=== PATIENT | female | born 1970 ===

== ENCOUNTER → 2018-09-07 21:53 | Outpatient (REF) | payer OTHER, SELFPAY ==
[2018-09-07 22:00] LABS: Bacteria Urine None Seen; RBC Urine None Seen (0-5/HPF); WBC Urine None Seen (0-5/HPF)
[2018-09-07 22:13] LABS: HEMOLYSIS < 15 (0-50)
[2018-09-07 22:14] LABS: Add Manual Diff / Slide Review NO; Basophils Percent Auto 0.6 % (0-2); Eosinophils Percent Auto 1.8 % (2-4); Hematocrit 39.8 % (36-46); Hemoglobin 13.5 g/dL (12.0-16.0); Lymphocytes Percent Auto 27.3 % (25-40); Mean Corpuscular HGB Conc 33.8 % (30-36); Mean Corpuscular Hemoglobin 30.6 PG (26-34); Mean Corpuscular Volume 90.6 fL (80-100); Monocytes Percent Auto 5.8 % (3-14); Neutrophils Absolute Auto 4200 /uL (3000-5900); Neutrophils Percent Auto 64.5 % (50-75); Platelet Count 297 X10^3/uL (150-400); Red Cell Distribution Width 12.6 % (11.6-14.8); White Blood Cell Count 6.6 X10^3/uL (4.5-11.0)
[2018-09-07 22:16] LABS: Appearance Urine UA CLEAR; Bilirubin Urine UA NEGATIVE (NEGATIVE); Color Urine UA YELLOW; Glucose Urine UA NEGATIVE (Normal); Ketones Urine UA NEGATIVE (NEGATIVE); Leukocyte Esterase Urine UA NEGATIVE (NEGATIVE); Nitrite Urine UA NEGATIVE (Negative); Occult Blood Urine UA NEGATIVE (Negative); Protein Urine UA NEGATIVE (Negative); Specific Gravity Urine UA 1.015 (1.000-1.035); Urobilinogen Urine UA 0.2 E.U./dL (0.2)
[2018-09-07 22:19] LABS: Alanine Aminotransferase 33 IU/L (9-52); Albumin 4.1 g/dL (3.5-5.0); Albumin Globulin Ratio 1.6 (1.0-2.8); Alkaline Phosphatase 49 U/L (38-126); Aspartate Aminotransferase 34 IU/L (14-36); BUN Creatinine Ratio 18.8 (6-22); Bilirubin Total 0.4 mg/dL (0.2-1.3); Blood Urea Nitrogen 15 mg/dL (7-17); Calcium 9.1 mg/dL (8.4-10.2); Carbon Dioxide 28 mmol/L (22-32); Chloride 103 mmol/L (98-107); Cholesterol 155 mg/dL (140-199); Estimated Glomerular Filt Rate > 60.0 mL/min (>60); Globulin 2.6 g/dL (1.7-4.1); Glucose 84 mg/dL (70-100); HDL Cholesterol 80 mg/dL (40-60); LDL Cholesterol Calculated 64 mg/dL (<100); Potassium 4.9 mmol/L (3.4-5.1); Sodium 141 mmol/L (137-145); Total Protein 6.7 g/dL (6.3-8.2); Triglycerides 53 mg/dL (35-150); Uric Acid 4.5 mg/dL (2.5-6.2)
[2018-09-07 22:38] LABS: Culture Indicated Urine Cult Not Indicated; Squamous Epithelial Cell Urine 0-1 /HPF; Urine Comments Microscopic Normal
[2018-09-07 22:50] LABS: Thyroid Stimulating Hormone 0.81 uIU/mL (0.47-4.68)
[2018-09-07 22:52] LABS: Erythrocyte Sedimentation Rate 2 MM/HR (0-20)
[2018-09-07 22:54] LABS: Ferritin 44.2 ng/mL (6.27-137)
[2018-09-07 23:24] LABS: Rheumatoid Factor 19.8 IU/mL (<12.0)
[2018-09-07 23:34] LABS: C-Reactive Protein Quant < 0.5 mg/dL (<1.0)
[2018-09-07 23:39] LABS: Free T3, Triiodothyronine Free 4.26 pg/mL (2.77-5.27); Free T4, Direct Thyroxine 1.19 ng/dL (0.78-2.19)
[2018-09-08 01:30] LABS: Carcinoembryonic Antigen 1.5 ng/mL (0.1-3.0); Cortisol AM (Before 10AM) 9.65 ug/dL (4.46-22.7)
[2018-09-10 16:00] LABS: ANA Screen, IFA Negative (Negative)
[2018-09-11 14:01] LABS: Dehydroepiandrosterone Sulfate 109 mcg/dL (19-231)
[2018-09-12 08:40] LABS: Anti Thyroglobulin Antibody < 1 IU/mL (< 2); Thyroid Peroxidase Antibodies 1 IU/mL (< 9)
== END ==
LOC: LAB 21:53
PROVIDERS: Visit Provider Acupuncturist
DX: M05.9 Rheumatoid arthritis with rheumatoid factor, unspecified (principal); R53.83 Other fatigue
CPT/HCPCS: 36415; 80053; 80061; 81001; 82378; 82533; 82627; 82728; 84439; 84443; 84481; 84550; 85025; 85651; 86038; 86140; 86376; 86430; 86800